=== PATIENT | male | born 1965 | race Caucasian/White ===

== ENCOUNTER → 2020-09-03 | Outpatient (CLI) | payer BC ==
[~2020-09-03] MED LIST: SITA1TAB7 PO
[2020-09-07 10:38] VITALS: BP 110/65
== END ==
LOC: LAB 07:30
PROVIDERS: ATTEND Nurse Anesthetist, Certified Registered
DX: Z01.812 Encounter for preprocedural laboratory examination (principal); Z12.11 Encounter for screening for malignant neoplasm of colon; Z20.828 Contact with and (suspected) exposure to other viral communicable diseases
CPT/HCPCS: C9803; U0003

== ENCOUNTER → 2020-09-07 | Day surgery (SDC) | payer BC ==
[~2020-09-07] MED LIST changes: +INSULIN REGULAR 100 UNIT/ML 3ML VIAL. IV ONE; +LIDOCAINE 2% PF 5 ML VIAL. ONE; +PROPOFOL 10,000 MCG/ML (20ML) VIAL IV ONE
[2020-09-07 10:38] VITALS: BP 110/65
--- NOTE | 2020-09-09 23:06 | PATHOLOGY ---
[facility] Accession Number: [id number] . 01 Material submitted: . PART A: cecum - CECAL POLYP PART B: colon - SIGMOID POLYP. Modifiers: sigmoid . 02 Diagnosis: A. "Cecal polyp", biopsy: - Vegatative material only, no colonic mucosa/tissue identified histologically. . B. "Sigmoid polyp", biopsy: - Tubular adenoma; no high-grade dysplasia. (CLW:caro; 09/09/2020) S 09/09/2020 1243 Local . 02 Comment: Clinical and endoscopic correlation is required. (CLW:caro; 09/09/2020) . 02 Electronically signed: . Mary Reno MD, Pathologist NPI- [id number] . 01 Gross description: . A. The specimen is received in formalin, labeled "Dwain, Doroteo, cecal polyp" and consists of abundant vegetative material admixed with possible pink-bar tissue measuring 2.6 x 2.6 x 0.4 cm which is entirely submitted in A1. . B. The specimen is received in formalin, labeled "Prakash, Doroteo, sigmoid polyp" and consists of a polypoid segment of brown tissue measuring 0.8 x 0.8 x 0.5 cm. The margin is inked black. It is trisected and entirely submitted in B1. (SDY; 09/08/2020) SYU/SYU 09/08/2020 1307 Local . 02 Pathologist provided ICD-10: D12.5, Z12.11 . 02 CPT . 685717, [id number] Specimen Comment: A courtesy copy of this report has been sent to [phone], [phone] Specimen Comment: [phone] Specimen Comment: Report sent to / Performed at: 01 [facility] [address], [place], [place] [id number] MD Ahmet Kapadia MD Phone: [phone] Performed at: 02 [facility] [address] [place], [place] [id number] MD Jay Jay Pickering MD Phone: [phone]
== END | disposition home or self-care (01) ==
LOC: SURG 08:05
PROVIDERS: ATTEND Emergency Medicine
DX: Z12.11 Encounter for screening for malignant neoplasm of colon (principal); D12.5 Benign neoplasm of sigmoid colon; K64.8 Other hemorrhoids; K57.30 Diverticulosis of large intestine without perforation or abscess without bleeding; Z79.899 Other long term (current) drug therapy
CPT/HCPCS: 45385; 82947; J2001; J2704; 88302; 88305